=== PATIENT | male | born 1975 | race Asian ===

== ENCOUNTER 2024-03-27 06:18 | Outpatient (REF) | payer OTHER, SELFPAY ==
--- NOTE | ~2024-03-27 | US_ITS ---
EXAMINATION: US PELVIS LIMITED HISTORY: superficial lump lt pelvic just above iliac crest COMPARISON: There are no prior studies for comparison. TECHNIQUE: Sonographic examination of a palpable abnormality above the left iliac crest was performed. There is a 4.4 x 1.0 x 3.9 cm ovoid lesion which appears isoechoic to subcutaneous fat, and may represent a lipoma. US/US pelvic limited IMPRESSION: 4.4 x 1.0 x 3.9 cm possible lipoma corresponding to the palpable findings just above the left iliac crest. This could be confirmed with CT or MRI if desired. Electronically signed by: Costa Sal MD 03/27/2024 11:15 AM [id number]
== END 2024-03-27 06:19 | disposition home or self-care (01) ==
LOC: HO.UMASIMG 06:18
PROVIDERS: Visit Provider Family Medicine
DX: R22.2 Localized swelling, mass and lump, trunk (principal)
CPT/HCPCS: 76857

== ENCOUNTER → 2024-03-27 10:00 | Outpatient (BNV) | payer OTHER, SELFPAY | PROVIDERS: Visit Provider Radiology Diagnostic Radiology | DX: R22.2 Localized swelling, mass and lump, trunk (principal) | CPT/HCPCS: 76857 ==